=== PATIENT | male | born 2005 | race Two or more races ===

== ENCOUNTER 2024-10-31 13:25 | Outpatient (CLI) | payer BC, SELFPAY | END 2024-10-31 13:26 | disposition home or self-care (01) | LOC: NFLDUCREF 13:25 | DX: L02.211 Cutaneous abscess of abdominal wall (principal); B95.62 Methicillin resistant Staphylococcus aureus infection as the cause of diseases classified elsewhere | CPT/HCPCS: 87070; 87186 ==